=== PATIENT | female | born 1970 | race Asian ===

== ENCOUNTER 2017-09-02 02:54 | Emergency (ER) | payer BC ==
[~2017-09-02] VITALS: Ht 154.9 cm; Wt 76.1 kg
[~2017-09-02 02:54] MED LIST: CRESTOR5 MG PO; FIORICET WI1 CAPSULE PO; SUMATRIPTAN SU100 MG PO
[2017-09-02] MEDS ORDERED: NORCO 5/3251 TABLET PO (05:42)
[2017-09-02] MEDS ORDERED: FLEXERIL10 MG PO (05:42)
[2017-09-02] MEDS ORDERED: MEDROL DOSEPAK4 MG PO (05:42)
[2017-09-02 06:09] VITALS: BP 135/70
== END 2017-09-02 06:10 | disposition home or self-care (01) ==
LOC: EME 02:54
DX: S76.011A Strain of muscle, fascia and tendon of right hip, initial encounter (principal); X50.1XXA Overexertion from prolonged static or awkward postures, initial encounter; Y93.E5 Activity, floor mopping and cleaning; Y92.002 Bathroom of unspecified non-institutional (private) residence as the place of occurrence of the external cause; Z88.6 Allergy status to analgesic agent
CPT/HCPCS: 73502; 99281; 99283; J3010